=== PATIENT | female | born 1985 | race Caucasian/White ===

== ENCOUNTER 2020-03-14 10:41 | Emergency (ER) | payer BC ==
[2020-03-14 11:31] VITALS: BP 130/78; PULSE 103; TEMP 98.2; BMI 43.5
== END 2020-03-14 13:27 | disposition home or self-care (01) ==
LOC: JER 10:41
DX: B34.9 Viral infection, unspecified (principal); J06.9 Acute upper respiratory infection, unspecified; U07.1 COVID-19
CPT/HCPCS: 71046-TC-FY; 99284-25

== ENCOUNTER 2021-05-20 14:41 | Emergency (ER) | payer BC ==
[2021-05-20 15:02] VITALS: BP 114/69; PULSE 78; TEMP 98.8; BMI 41.1
== END 2021-05-20 16:15 | disposition left against medical advice (07) ==
LOC: JERFT 14:41
DX: R06.02 Shortness of breath (principal); R51.9 Headache, unspecified
CPT/HCPCS: 99281-25